=== PATIENT | male | born 1955 | race Caucasian/White ===

== ENCOUNTER 2019-02-17 18:23 | Observation (INO) | payer OTHER ==
[~2019-02-17] VITALS: Ht 185.4 cm; Wt 72.3 kg
[~2019-02-17 18:23] MED LIST: EUTHYROX150 MCG PO
[2019-02-17 20:40] LABS: BASOPHILS ABSOLUTE AUTO 0.05 K/mm3 (0.00-0.23); BASOPHILS PERCENT AUTO 1 % (0-2); EOSINOPHILS ABSOLUTE AUTO 0.01 K/mm3 (0.00-0.68); EOSINOPHILS PERCENT AUTO 0 % (0-6); Hematocrit 46.8 % (37.0-53.0); Hemoglobin 15.4 g/dL (13.5-17.5); IMMATURE GRAN ABSOLUTE AUTO 0.02 K/mm3 (0.00-0.10); IMMATURE GRAN PERCENT AUTO 1 % (0-1); International Normalized Ratio 1.01; LYMPHOCYTES ABSOLUTE AUTO 1.51 K/mm3 (0.84-5.20); LYMPHOCYTES PERCENT AUTO 34 % (21-46); MONOCYTES ABSOLUTE AUTO 0.25 K/mm3 (0.16-1.47); MONOCYTES PERCENT AUTO 6 % (4-13); Mean Corpuscular HGB 32.7 pg (26.0-34.0); Mean Corpuscular HGB Conc 32.9 g/dL (31.5-36.5); Mean Corpuscular Volume 99 fL (80-100); Mean Platelet Volume 9.9 fL (9.1-12.4); NEUTROPHILS ABSOLUTE AUTO 2.55 K/mm3 (1.96-9.15); NEUTROPHILS PERCENT AUTO 58 % (41-73); Platelet Count 220 K/mm3 (150-400); Prothrombin Time Results 10.7 Sec (9.7-11.5); RDW Coefficient Variation 14.5 % (11.7-14.2); RDW Standard Deviation 53.5 fL (35.1-46.3); Red Blood Cell Count 4.71 M/mm3 (4.30-5.90); White Blood Cell Count 4.39 K/mm3 (4.00-11.30)
[2019-02-17 20:44] LABS: Alanine Aminotransfer (ALT/SGP 45 U/L (12-78); Albumin, Blood 3.1 g/dL (3.4-5.0); Albumin/Globulin Ratio 0.6 (0.8-1.8); Alk Phos 124 U/L (50-136); Anion Gap 8 mmol/L (6-16); Aspartate Aminotrans (AST/SGOT 174 U/L (12-37); Bilirubin, Total 0.3 mg/dL (0.1-1.0); Blood Urea Nitrogen 4 mg/dL (8-24); Bun/Creatinine Ratio 5.5 (12.0-20.0); CO2, Blood 26 mmol/L (21-32); Calcium, Blood 8.3 mg/dL (8.5-10.1); Chloride, Blood 105 mmol/L (98-108); Creatinine, Blood 0.73 mg/dL (0.60-1.20); Globulin, Blood 5.3 g/dL (2.2-4.0); Glomerular Filtration Rate >60 (60-); Glucose, Blood 97 mg/dL (70-99); Potassium, Blood 4.2 mmol/L (3.5-5.5); Sodium, Blood 139 mmol/L (136-145); Total Protein, Blood 8.4 g/dL (6.4-8.2)
--- NOTE | 2019-02-18 00:30 | NUR ---
Tried taking attire off PT This leather skinner tried taking off PT's sock's, and PT. refused MACHINE SET UP OPERATOR's action. PT. had stool on socks and refused for them to be taken off. He said, "It will be okay, I am leaving in the morning". This MACHINE SET UP OPERATOR offered a pair of the [facility] socks, and PT refused.
--- NOTE | 2019-02-18 05:10 | NUR ---
SHIFT SUMMARY PATIENT ADMITTED FROM ER FOR OBSERVATION. PATIENT AAOX4 BUT APPEARS INTOXICATED, SLURRING WORDS AND VERY IMPULSIVE. BED ALARM ON. PATIENT DOES USE CALL LIGHT BUT DOES NOT WAIT FOR STAFF TO ANSWER BEFORE GETTING OUT OF BED. WITNESSED PATIENT URINATE AND HAVE LOOSE BOWEL MOVEMENT ON FLOOR OF ROOM. PATIENT HAS STOOL ON SOCKS BUT REFUSED TO ALLOW STAFF TO REMOVE OR CHANGE SOCKS. BRUISING NOTED ON LEFT SHOULDER AND ABRASION ON RIGHT FOREHEAD/JUDAISM. BED ALARM ON PATIENT STANDBY ASSIST TO BATHROOM. WILL CONTINUE TO MONITOR.
--- NOTE | 2019-02-18 14:30 | NUR ---
PT. DISCHARGED HOME, COMPED A [facility] RIDE HOME FOR HIM HE HAD NO WAY TO GET HOME. CT SHOWED BLEED IS CLEARING UP
== END 2019-02-18 14:33 | disposition home or self-care (01) ==
LOC: ER 18:23 → MEDS 18:24
PROVIDERS: Emergency Medicine; ADMIT Internal Medicine
DX: S06.6X0A Traumatic subarachnoid hemorrhage without loss of consciousness, initial encounter (principal); F10.129 Alcohol abuse with intoxication, unspecified; E03.9 Hypothyroidism, unspecified; J32.9 Chronic sinusitis, unspecified; F17.210 Nicotine dependence, cigarettes, uncomplicated; W19.XXXA Unspecified fall, initial encounter; Z79.899 Other long term (current) drug therapy
CPT/HCPCS: 36415; 70450; 72125; 80053; 85025; 85610; 85730; 90670; 90686; 96374; 97161; 99285-25; J3411; J3475; J7042

== ENCOUNTER 2020-10-14 12:53 | Inpatient (IN) | payer OTHER, MEDICARE ==
[~2020-10-14] VITALS: Ht 185.4 cm; Wt 100.6 kg
[2020-10-14 14:12] LABS: BASOPHILS ABSOLUTE AUTO 0.02 K/mm3 (0.00-0.23); BASOPHILS PERCENT AUTO 0 % (0-2); EOSINOPHILS PERCENT AUTO 0 % (0-6); Hematocrit 43.9 % (37.0-53.0); Hemoglobin 15.3 g/dL (13.5-17.5); IMMATURE GRAN ABSOLUTE AUTO 0.08 K/mm3 (0.00-0.10); IMMATURE GRAN PERCENT AUTO 1 % (0-1); LYMPHOCYTES ABSOLUTE AUTO 0.99 K/mm3 (0.84-5.20); LYMPHOCYTES PERCENT AUTO 13 % (21-46); MONOCYTES ABSOLUTE AUTO 0.74 K/mm3 (0.16-1.47); MONOCYTES PERCENT AUTO 9 % (4-13); Mean Corpuscular HGB 35.8 pg (26.0-34.0); Mean Corpuscular HGB Conc 34.9 g/dL (31.5-36.5); Mean Corpuscular Volume 103 fL (80-100); Mean Platelet Volume 12.7 fL (9.1-12.4); NEUTROPHILS ABSOLUTE AUTO 6.04 K/mm3 (1.96-9.15); NEUTROPHILS PERCENT AUTO 77 % (41-73); NRBC ABSOLUTE 0.02 K/mm3 (0.00-0.02); NRBC Auto 0.3 /100 WBC (0.0-0.2); RDW Coefficient Variation 14.1 % (11.7-14.2); RDW Standard Deviation 53.1 fL (35.1-46.3); Red Blood Cell Count 4.27 M/mm3 (4.30-5.90); White Blood Cell Count 7.87 K/mm3 (4.00-11.30)
[2020-10-14 14:18] LABS: Alanine Aminotransfer (ALT/SGP 20 U/L (12-78); Albumin/Globulin Ratio 0.6 (0.8-1.8); Alk Phos 75 U/L (50-136); Anion Gap 17 mmol/L (6-16); Aspartate Aminotrans (AST/SGOT 112 U/L (12-37); Bilirubin, Total 4.5 mg/dL (0.1-1.0); Blood Urea Nitrogen 6 mg/dL (8-24); Bun/Creatinine Ratio 7.7 (12.0-20.0); CO2, Blood 13 mmol/L (21-32); Chloride, Blood 109 mmol/L (98-108); Creatinine, Blood 0.78 mg/dL (0.60-1.20); Globulin, Blood 4.8 g/dL (2.2-4.0); Glomerular Filtration Rate >60 (60-); Glucose, Blood 148 mg/dL (70-99); Potassium, Blood 3.4 mmol/L (3.5-5.5); Sodium, Blood 139 mmol/L (136-145); Total Protein, Blood 7.8 g/dL (6.4-8.2)
[2020-10-14 14:30] LABS: Platelet Count 49 K/mm3 (150-400)
[2020-10-14 15:12] LABS: Bicarbonate Venous 23.1 mmol/L (24.0-30.0); PO2 Venous 75.3 mmHg (38-42); pH Blood Venous 7.55 (7.34-7.37)
[2020-10-14 17:57] LABS: Source, Urine Clean Catch
[2020-10-14 18:00] LABS: Appearance, Urine Clear (Clear); Blood, Urine 2+ (Neg); Color, Urine Amber (P-Yellow); Glucose Qualitative, Urine Neg (Neg); Ketones, Urine 1+ (Neg); Leukocyte Esterase, Urine 2+ (Neg); Nitrite, Urine Pos (Neg); Protein, Urine 2+ (Neg); Specific Gravity, Urine 1.025 (1.003-1.022); Urobilinogen, Urine 3+ (Normal)
[2020-10-14 18:01] LABS: Bilirubin, Urine 2+ (Neg)
[2020-10-14 18:10] LABS: Bacteria Many /hpf; Red Blood Cells, Urine 0-2 /hpf (0-2); Squamous Epithelial Cells Rare /hpf (Few)
[2020-10-14 18:11] LABS: U Amphetamine Screen Not Detected; U Barbituate Screen Not Detected; U Benzodiazapine Screen Not Detected; U Buprenorphine Screen Not Detected; U Cannabinoids Screen Not Detected; U Cocaine Screen Not Detected; U Methadone Screen Not Detected; U Methamphetamine Screen Not Detected; U Opiates Screen Not Detected; U Oxycodone Screen Not Detected; U Phencyclidine Screen Not Detected; U Propoxyphene Screen Not Detected
[2020-10-14 20:47] LABS: Free Thyroxine 0.7 ng/dL (0.70-1.60); Thyroid Stimulating Hormone 16.1 uIU/mL (0.360-4.800)
[2020-10-15 03:41] LABS: BASOPHILS ABSOLUTE AUTO 0.01 K/mm3 (0.00-0.23); BASOPHILS PERCENT AUTO 0 % (0-2); EOSINOPHILS PERCENT AUTO 0 % (0-6); Hematocrit 41.2 % (37.0-53.0); Hemoglobin 14.2 g/dL (13.5-17.5); IMMATURE GRAN ABSOLUTE AUTO 0.02 K/mm3 (0.00-0.10); IMMATURE GRAN PERCENT AUTO 1 % (0-1); LYMPHOCYTES ABSOLUTE AUTO 0.66 K/mm3 (0.84-5.20); LYMPHOCYTES PERCENT AUTO 18 % (21-46); MONOCYTES ABSOLUTE AUTO 0.25 K/mm3 (0.16-1.47); MONOCYTES PERCENT AUTO 7 % (4-13); Mean Corpuscular HGB 35.5 pg (26.0-34.0); Mean Corpuscular HGB Conc 34.5 g/dL (31.5-36.5); Mean Corpuscular Volume 103 fL (80-100); NEUTROPHILS ABSOLUTE AUTO 2.64 K/mm3 (1.96-9.15); NEUTROPHILS PERCENT AUTO 74 % (41-73); NRBC ABSOLUTE 0.02 K/mm3 (0.00-0.02); NRBC Auto 0.6 /100 WBC (0.0-0.2); RDW Coefficient Variation 13.9 % (11.7-14.2); RDW Standard Deviation 53.6 fL (35.1-46.3); White Blood Cell Count 3.58 K/mm3 (4.00-11.30)
[2020-10-15 03:44] LABS: Mean Platelet Volume 13.1 fL (9.1-12.4); Platelet Count 36 K/mm3 (150-400)
[2020-10-15 04:00] LABS: Alanine Aminotransfer (ALT/SGP 19 U/L (12-78); Albumin, Blood 2.5 g/dL (3.4-5.0); Albumin/Globulin Ratio 0.6 (0.8-1.8); Alk Phos 61 U/L (50-136); Anion Gap 8 mmol/L (6-16); Aspartate Aminotrans (AST/SGOT 80 U/L (12-37); Bilirubin, Total 3.5 mg/dL (0.1-1.0); Blood Urea Nitrogen 8 mg/dL (8-24); Bun/Creatinine Ratio 11.1 (12.0-20.0); CO2, Blood 24 mmol/L (21-32); Calcium, Blood 7.6 mg/dL (8.5-10.1); Chloride, Blood 106 mmol/L (98-108); Creatinine, Blood 0.72 mg/dL (0.60-1.20); Globulin, Blood 4.4 g/dL (2.2-4.0); Glomerular Filtration Rate >60 (60-); Glucose, Blood 103 mg/dL (70-99); Sodium, Blood 138 mmol/L (136-145); Total Protein, Blood 6.9 g/dL (6.4-8.2)
--- NOTE | 2020-10-15 05:59 | NUR ---
SHIFT SUMMARY PATIENT SLEPT WELL THRU NIGHT. EARLIER IN NIGHT PT BECAME HYPOTENSIVE, STARTED NS BOLUS. BP WAS INITIALLY REACTIVE, MAINTAINING WITH SBP ~ 85, MAP > 65. HOWEVER @ 04:15 BP DROPPED AGAIN, LOW OF 64/45 WITH MANUAL CUFF, OBTAINED ORDER FOR LEVOPHED. CURRENTLY RUNNING PERIPHERALLY @ 4 MCG/MIN, BP NOW 106/78 (88,) PT BECOMING MORE EASILY ROUSABLE. BEFORE FALLING ASLEEP PT HAD SLOWLY BECAME MORE CONFUSED, PROGRESSING FROM CIWA OF 2, ONLY SCORING FOR TREMORS, TO HIGH OF 14, SCORING FOR TREMORS, SWEATS, AGITATION, AND CONFUSION. GAVE 4 MG ATIVAN AND 50 MG LIBRIUM TONIGHT. BEFORE BECOMING CONFUSED, PT HAD ADMITTED TO RECENT 6-MONTH DRINKING BINGE. PT STATED "I WAS JUST BORED." GAVE EDUCATION ON ALCOHOL WITHDRAWL, BASIC SAFETY MEASURES WHILE IN ICU, MEDICATIONS, PT VERY AGREEABLE AT THE TIME. ASSESSMENT IS CHARTED. VSS. WILL CONTINUE TO MONITOR.
--- NOTE | 2020-10-15 07:45 | NUR ---
ASSUMED CARE: REPORT RECEIVED FROM CRISTIAN Jade RN. ASSUMED CARE OF THIS PT AT APPROX 0700. ON ASSESSMENT, THE PT IS RESTING QUIETLY. HE AWAKENS MINIMALLY TO VERBAL STIMULUS BUT IS NOT SAYING WORDS, ONLY GROANS OR MAKES NONSENSICAL STATEMENTS THAT ARE DIFFICULT TO UNDERSTAND. SEE CIWA. PT ON RA W/ O2 SATS > 92%. MONITOR SHOWS AFLUTTER/AFIB W/ HR LABILE, 70-140s. LEVOPHED INFUSING AT 2 MCG/MIN FOR HYPOTENSION. NPO R/T AMS. INCONTINENT OF BLADDER & BOWEL W/ ATTENDS IN PLACE. SKIN CONDITION OVERALL FRAGILE, ECCHYMOTIC. Q2H REPOSITIONING TO MAINTAIN SKIN INTEGRITY. WILL CONTINUE TO MONITOR & UPDATE NEEDED.
--- NOTE | 2020-10-15 10:00 | NUR ---
DR CHUNG: PROVIDER AT BEDSIDE TO EVAL PT THIS AM. DISCUSSED PT's LOW PLT COUNT & ORDERED LOVENOX, LOVENOX D/C'd. NS RATE INCREASED TO 200 ML/HR, D/C NS AFTER BAG CURRENTLY INFUSING & BEGIN LR @ 200 ML/HR. PROVIDER ALSO PLANS TO ORDER PT's HOME LEVOTHYROXINE. NO OTHER CHANGES AT THIS TIME.
[2020-10-15] MEDS ORDERED: LEVSOD150 PO (11:04)
[2020-10-15] MEDS ORDERED: TAMS.4ER PO (11:04)
--- NOTE | 2020-10-15 18:07 | NUR ---
SHIFT SUMMARY: NO ACUTE CHANGES SINCE PRIOR UPDATES. THE PT IS MORE ALERT THIS AFTERNOON, ORIENTED TO SELF, FOLLOWING DIRECTIONS, PLACE & EVENTS. LS CLEAR, PT ON RA W/ O2 SATS > 92%. MONITOR SHOWS AFLUTTER/AFIB W/ HR 70-100s, BP STABLE W/ LEVOPHED OFF SINCE APPROX 1300. PT TOLERATING SIPS OF WATER SINCE MENTATION IMPROVED. ATTENDS IN PLACE FOR INCONTINENCE OF BOWEL & BLADDER. PT OCCASIONALLY USES URINAL, VOIDING DARK TINY COLORED URINE IN SMALL AMNTS. SKIN CONDITION OVERALL FRAGILE, ECCYMOTIC. Q2H REPOSITIONING TO MAINTAIN SKIN INTEGRITY. WILL CONTINUE TO MONITOR & REPORT OFF TO ONCOMING RN.
[2020-10-16 03:48] LABS: BASOPHILS ABSOLUTE AUTO 0.01 K/mm3 (0.00-0.23); BASOPHILS PERCENT AUTO 0 % (0-2); EOSINOPHILS PERCENT AUTO 0 % (0-6); Hematocrit 40.9 % (37.0-53.0); Hemoglobin 14.1 g/dL (13.5-17.5); IMMATURE GRAN ABSOLUTE AUTO 0.06 K/mm3 (0.00-0.10); IMMATURE GRAN PERCENT AUTO 2 % (0-1); LYMPHOCYTES ABSOLUTE AUTO 0.85 K/mm3 (0.84-5.20); LYMPHOCYTES PERCENT AUTO 22 % (21-46); MONOCYTES ABSOLUTE AUTO 0.46 K/mm3 (0.16-1.47); MONOCYTES PERCENT AUTO 12 % (4-13); Mean Corpuscular HGB 35.4 pg (26.0-34.0); Mean Corpuscular HGB Conc 34.5 g/dL (31.5-36.5); Mean Corpuscular Volume 103 fL (80-100); NEUTROPHILS ABSOLUTE AUTO 2.49 K/mm3 (1.96-9.15); NEUTROPHILS PERCENT AUTO 64 % (41-73); RDW Coefficient Variation 13.8 % (11.7-14.2); RDW Standard Deviation 52.8 fL (35.1-46.3); Red Blood Cell Count 3.98 M/mm3 (4.30-5.90); White Blood Cell Count 3.87 K/mm3 (4.00-11.30)
[2020-10-16 03:50] LABS: Mean Platelet Volume 13.3 fL (9.1-12.4)
[2020-10-16 03:51] LABS: Platelet Count 36 K/mm3 (150-400)
[2020-10-16 04:17] LABS: Alanine Aminotransfer (ALT/SGP 19 U/L (12-78); Albumin, Blood 2.2 g/dL (3.4-5.0); Albumin/Globulin Ratio 0.6 (0.8-1.8); Alk Phos 52 U/L (50-136); Anion Gap 8 mmol/L (6-16); Aspartate Aminotrans (AST/SGOT 72 U/L (12-37); Bilirubin, Total 2.8 mg/dL (0.1-1.0); Blood Urea Nitrogen 9 mg/dL (8-24); Bun/Creatinine Ratio 14.4 (12.0-20.0); CO2, Blood 22 mmol/L (21-32); Calcium, Blood 7.4 mg/dL (8.5-10.1); Chloride, Blood 110 mmol/L (98-108); Creatinine, Blood 0.63 mg/dL (0.60-1.20); Glomerular Filtration Rate >60 (60-); Glucose, Blood 83 mg/dL (70-99); Potassium, Blood 3.2 mmol/L (3.5-5.5); Sodium, Blood 140 mmol/L (136-145); Total Protein, Blood 6.2 g/dL (6.4-8.2)
--- NOTE | 2020-10-16 06:03 | NUR ---
SHIFT SUMMARY PATIENT SLEPT WELL THRU NIGHT. GAVE LIBRIUM EARLIER IN NIGHT FOR CIWA OF 11, WAS NOT SCORABLE HIGHER THAN 3 REST OF NIGHT. VSS. ASSESSMENT IS CHARTED. NO C/O PAIN. WILL CONTINUE TO MONITOR.
--- NOTE | 2020-10-16 08:50 | NUR ---
ASSUMED CARE REPORT FROM CRISTIAN GOMEZ AT 0700. PT WAKES TO VERBAL STIMULI. INITIALLY STATES HE IS IN [place], THEN STATES HE IS [place], [place] AND KNOWS MONTH AND YEAR. UNSURE OF PRESIDENT. FOLLOWS SIMPLE DIRECTIONS. DENIES VISUAL OR AUDITORY HALLUCINATIONS. REPORTS MILD CURTIS, DENIES N/V. SLIGHT TREMORS NOTED. CIWA 7. LIBRIUM GIVEN. NO DIFFICULTIES SWALLOWING. LUNGS CLEAR. AFIB, RATE 90-120'S ON MONITOR. BP STABLE. SKIN c SCATTERED ABRASIONS AND ECCHYMOSIS. GENERALIZED WEAKNESS BUT MOVES ALL EXTREMITIES. ATTENDS IN PLACE, PT INCONTINENT OF BOWEL AND BLADDER. LIQUID STOOL OUT. WILL CONTINUE TO MONITOR.
--- NOTE | 2020-10-16 17:13 | NUR ---
SHIFT SUMMARY PT MORE CONFUSED THIS SHIFT. SPEECH GARBLED, INCOHERANT. ABLE TO STATE NAME AND CITY. BECOMES IRRITABLE c QUESTIONS OR CARE. CURSING. MILD TREMORS. NO HALLUCINATIONS NOTED. CIWA 10-15 THIS SHIFT. MEDICATED c LIBRIUM AND ATIVAN PRN. PT INCONTINENT OF BOTH BOWEL AND BLADDER. CONDOM CATH AND FECAL COLLECTION SYSTEM PLACED. BROWN LIQUID STOOL SENT TO LAB FOR GI PANEL. PT ATE SMALL AMOUNT OF BREAKFAST ONLY, NOT ALERT ENOUGH FOR LUNCH OR DINNER. VSS. PLACED ON 2L O2 VIA NC FOR SLEEP APNEA. WILL CONTINUE TO MONITOR UNTIL REPORT TO ONCOMING NURSE.
[2020-10-16 17:19] LABS: Campylobacter Sp Not Detected (NOT DETECT)
[2020-10-16 17:20] LABS: Adenovirus F 40/41 Not Detected (NOT DETECT); Astrovirus Not Detected (NOT DETECT); Cryptosporidium Not Detected (NOT DETECT); Cyclospora Cayetanensis Not Detected (NOT DETECT); E. Coli O157 Not Detected (NOT DETECT); Entamoeba Histolytica Not Detected (NOT DETECT); Enteroaggregative E. coli-EAEC Not Detected (NOT DETECT); Enteropathogenic E. coli-EPEC Not Detected (NOT DETECT); Enterotoxigenic E. coli-ETEC Not Detected (NOT DETECT); Giardia Lamblia Not Detected (NOT DETECT); Norovirus GI/GII Not Detected (NOT DETECT); Plesiomonas Shigelloides Not Detected (NOT DETECT); Rotavirus A Not Detected (NOT DETECT); Salmonella Sp Not Detected (NOT DETECT); Sapovirus Not Detected (NOT DETECT); Shiga Toxin-prod E. coli-STEC Not Detected (NOT DETECT); Shigella/Enteroin E. coli-EIEC Not Detected (NOT DETECT); Vibrio Cholerae Not Detected (NOT DETECT); Vibrio Sp Not Detected (NOT DETECT); Yersinia Enterocolitica Not Detected (NOT DETECT)
[2020-10-16 19:15] LABS: pH Blood Arterial 7.56 (7.35-7.45)
--- NOTE | 2020-10-16 19:40 | NUR ---
ASSUMED CARE REPORT RECEIVED FROM CORA GOMEZ. PT RESTING IN BED, DENIES PAIN AT THIS TIME. LR INFUSING AT 200 ML/HR. PT WITH VERY GARBLED SPEECH, ANSWERS ALL ORIENTATION QUESTIONS APPROPRIATELY. FOLLOWS COMMANDS. HR 90-115'S AFIB ON MONITOR, SBP 115'S, RR 40-50'S. CONDOM CATH IN PLACE, DRAINING TO GRAVITY. RECTAL BAG IN PLACE DUE TO FREQUENT DIARRHEA. LUNG COARSE WITH OCCASSIONAL PRODUCTIVE COUGH. SUCTION USED TO ATTEMPT TO CLEAR MOUTH, NO GAG NOTED. WILL REVIEW ORDERS TO COME UP WITH PLAN OF CARE.
--- NOTE | 2020-10-17 01:15 | NUR ---
2100: SPOKE WITH DR. HOLLIS REGARDING PT'S RR. BUNNY TO PT'S BEDSIDE TO ASSESS PT. NEW ORDER PLACED FOR CXR. FLUIDS STOPPED AT THIS TIME DUE TO CONCERN FOR FLUID OVERLOAD. 2144: BUNNY NOTIFED THAT CXR COMPLETED. PER MD, CONGESTION NOTED. FLUID OVERLOAD VS PNEUMONIA. NEW ORDERS PLACED FOR ONE TIME 40MG LASIX, LEVAQUIN, AND CPAP IF PT CAN TOLERATE. ORDER PLACED FOR BNP TO BE DRAWN. 2214: CPAP APPLIED, PT TOLERATING. RR REMAINS 40-50'S. 2229: BUNNY NOTIFIED OF ELEVATED BNP OF 627. WILL CONTINUE TO MONITOR, NO ADDITIONAL ORDERS PLACED AT THIS TIME.
[2020-10-17 03:36] LABS: BASOPHILS ABSOLUTE AUTO 0.01 K/mm3 (0.00-0.23); BASOPHILS PERCENT AUTO 0 % (0-2); EOSINOPHILS PERCENT AUTO 0 % (0-6); Hematocrit 41.8 % (37.0-53.0); Hemoglobin 14.8 g/dL (13.5-17.5); IMMATURE GRAN ABSOLUTE AUTO 0.03 K/mm3 (0.00-0.10); IMMATURE GRAN PERCENT AUTO 1 % (0-1); LYMPHOCYTES ABSOLUTE AUTO 0.68 K/mm3 (0.84-5.20); LYMPHOCYTES PERCENT AUTO 15 % (21-46); MONOCYTES ABSOLUTE AUTO 0.57 K/mm3 (0.16-1.47); MONOCYTES PERCENT AUTO 13 % (4-13); Mean Corpuscular HGB Conc 35.4 g/dL (31.5-36.5); Mean Corpuscular Volume 102 fL (80-100); NEUTROPHILS ABSOLUTE AUTO 3.21 K/mm3 (1.96-9.15); NEUTROPHILS PERCENT AUTO 71 % (41-73); NRBC ABSOLUTE 0.02 K/mm3 (0.00-0.02); NRBC Auto 0.4 /100 WBC (0.0-0.2); RDW Coefficient Variation 13.9 % (11.7-14.2); RDW Standard Deviation 52.2 fL (35.1-46.3); Red Blood Cell Count 4.11 M/mm3 (4.30-5.90)
[2020-10-17 03:40] LABS: Platelet Count 37 K/mm3 (150-400)
[2020-10-17 03:56] LABS: Alanine Aminotransfer (ALT/SGP 16 U/L (12-78); Albumin, Blood 1.9 g/dL (3.4-5.0); Albumin/Globulin Ratio 0.5 (0.8-1.8); Alk Phos 51 U/L (50-136); Anion Gap 10 mmol/L (6-16); Aspartate Aminotrans (AST/SGOT 59 U/L (12-37); Bilirubin, Total 2.7 mg/dL (0.1-1.0); Blood Urea Nitrogen 11 mg/dL (8-24); Bun/Creatinine Ratio 16.6 (12.0-20.0); CO2, Blood 22 mmol/L (21-32); Calcium, Blood 7.6 mg/dL (8.5-10.1); Chloride, Blood 108 mmol/L (98-108); Creatinine, Blood 0.66 mg/dL (0.60-1.20); Globulin, Blood 3.9 g/dL (2.2-4.0); Glomerular Filtration Rate >60 (60-); Glucose, Blood 98 mg/dL (70-99); Potassium, Blood 2.7 mmol/L (3.5-5.5); Sodium, Blood 140 mmol/L (136-145); Total Protein, Blood 5.8 g/dL (6.4-8.2)
--- NOTE | 2020-10-17 05:06 | NUR ---
DR. CERDA NOTIFIED REGARDING BP 74/55. NEW ORDER PLACED FOR 250ML BOLUS.
--- NOTE | 2020-10-17 06:26 | NUR ---
SHIFT SUMMARY PT RESTING COMFORTABLY. DENIES PAIN T/O SHIFT. CPAP 10/30%. PT AROUSABLE TO VERBAL STIMULI, FOLLOWING COMMANDS. HR 60'S AFIB ON MONITOR. BP SOFT THIS MORNING AFTER STARTING PRECEDEX, AWARE 250ML LR BOLUS X2 ORDERED TO MAINTAIN MAP >65. RECTAL BAG INTACT, CONDOM CATH DRAINING TO GRAVITY. RR 30'S, LUNGS COARSE T/O SHIFT. WILL CONTINUE TO MONITOR UNTIL REPORT GIVEN TO ONCOMING RN.
--- NOTE | 2020-10-17 08:30 | NUR ---
ASSUMED CARE REPORT FROM ARTURO GOMEZ AT 0700. PT RESTING IN BED. WAKES c VERBAL STIMULI. GARBLE SPEECH, DIFFICULT TO UNDERSTAND THROUGH CPAP MASK. SETTINGS 10/30%. FOLLOWS SIMPLE DIRECTIONS. LUNGS COARSE THROUGHOUT. TACHYPNEIC, RR 30-40'S. ABD ROUND, SOFT, HYPOACTIVE BT. AM MEDS HELD D/T ASPIRATION RISK. ECCHYMOSIS AND ABRASIONS, SEE SKIN ASSESSMENT. RECTAL BAG IN PLACE, LIQUID BROWN STOOL OUT. CONDOM CATH DRAINING TINY CLEAR URINE. MAYANK HOSE FOR VTE. BP STABLE. AFIB, RATE 60'S. WILL CONTINUE TO MONITOR.
--- NOTE | 2020-10-17 17:32 | NUR ---
SHIFT SUMMARY PT TITRATED OFF PRECEDEX GTT THIS SHIFT. PT KNOWS HE IS IN [place], AT [facility], ABLE TO STATE NAME AND BIRTHDAY. GARBLED SPEECH, DIFFICULT TO UNDERSTAND. IRRITABLE c FURTHER QUESTIONING. FOLLOWS SIMPLE COMMANDS. LUNGS COARSE. PT ON CPAP 10/30% FOR FIRST HALF OF SHIFT, 2L VIA NC SECOND HALF. RR CONTINUES TO BE 30-40 c BOTH CPAP AND NC. CONDOM CATH AND RECTAL BAG REMAIN IN PLACE. 1250 ML CLEAR TINY URINE OUT THIS SHIFT. BP STABLE. AFIB, RATE 60-70'S THIS SHIFT. WILL CONTINUE TO MONITOR UNTIL REPORT TO ONCOMING NURSE.
[2020-10-18 04:26] LABS: Albumin, Blood 1.7 g/dL (3.4-5.0); Anion Gap 6 mmol/L (6-16); Blood Urea Nitrogen 10 mg/dL (8-24); Bun/Creatinine Ratio 15.4 (12.0-20.0); CO2, Blood 26 mmol/L (21-32); Calcium, Blood 7.4 mg/dL (8.5-10.1); Chloride, Blood 108 mmol/L (98-108); Creatinine, Blood 0.65 mg/dL (0.60-1.20); Glomerular Filtration Rate >60 (60-); Glucose, Blood 89 mg/dL (70-99); Magnesium, Blood 1.7 mg/dL (1.6-2.4); Phosphorus, Blood 2.5 mg/dL (2.5-4.9); Potassium, Blood 3.1 mmol/L (3.5-5.5); Sodium, Blood 140 mmol/L (136-145)
[2020-10-18 04:40] LABS: BASOPHILS PERCENT AUTO 0 % (0-2); EOSINOPHILS ABSOLUTE AUTO 0.01 K/mm3 (0.00-0.68); EOSINOPHILS PERCENT AUTO 0 % (0-6); Hematocrit 37.6 % (37.0-53.0); Hemoglobin 12.9 g/dL (13.5-17.5); IMMATURE GRAN ABSOLUTE AUTO 0.03 K/mm3 (0.00-0.10); IMMATURE GRAN PERCENT AUTO 1 % (0-1); LYMPHOCYTES PERCENT AUTO 21 % (21-46); MONOCYTES ABSOLUTE AUTO 0.32 K/mm3 (0.16-1.47); MONOCYTES PERCENT AUTO 11 % (4-13); Mean Corpuscular HGB 35.7 pg (26.0-34.0); Mean Corpuscular HGB Conc 34.3 g/dL (31.5-36.5); Mean Corpuscular Volume 104 fL (80-100); NEUTROPHILS ABSOLUTE AUTO 1.95 K/mm3 (1.96-9.15); NEUTROPHILS PERCENT AUTO 67 % (41-73); RDW Coefficient Variation 13.8 % (11.7-14.2); RDW Standard Deviation 52.9 fL (35.1-46.3); Red Blood Cell Count 3.61 M/mm3 (4.30-5.90); White Blood Cell Count 2.91 K/mm3 (4.00-11.30)
[2020-10-18 05:41] LABS: Platelet Count 26 K/mm3 (150-400)
--- NOTE | 2020-10-18 07:22 | NUR ---
SHIFT SUMMARY PATIENT IS ALERT AND ORIENTED X3, CONFUSED AT TIMES AND NEEDS TO BE REORIENTED. GARBLED SPEECH. AGITATED AT TIMES, ATIVAN GIVEN ONCE, PATIENT SLEPT MOST OF NIGHT AFTERWARD. CIWA RANGING FROM 8-10. REPOSITIONED Q2 HOURS. PATIENT WORE CPAP MOST THE NIGHT, 2L NC WHEN OFF CPAP, 02 SATS >95%. RR REMAINS IN THE 30s-40s. CONDOM CATH DRAINING TINY URINE. CALLED HOSPITALIST ABOUT POTASSIUM OF 3.1, WILL MEDICATE PER EMAR. VSS, NO ACUTE CHANGES, CALL LIGHT IN REACH.
--- NOTE | 2020-10-18 08:30 | NUR ---
ASSUMED CARE BEDSIDE REPORT RECIEVED. PT RESTING QUIETLY INITIALLY. PT AWAKENS EASILY TO VERBAL STIMULI. CPAP REMOVED. PT SPO2 >90% ON ROOM AIR. VITAL SIGNS STABLE. PT ANSWERS SIMPLE QUESTIONS APPROPRIATELY. SPEECH IS SLURRED AND PT SLOW TO RESPOND. CONFUSED/FORGETFUL AT TIMES. PT IS CALM AND COOPERATIVE. LR INFUSING AT 100 ML/HR. CONDOM CATH IN PLACE WITH DARK YELLOW OUTPUT NOTED. PT MOVES ALL EXTREMITIES WITH WEAKNESS. WILL CONTINUE TO MONITOR.
--- NOTE | 2020-10-18 17:34 | NUR ---
SHIFT SUMMARY NO ACUTE CHANGES THIS SHIFT. PT HAS SLEPT OFF AND ON THROUGHOUT THE DAY. WHEN AWAKE PT REMAINS CALM AND COOPERATIVE. PT IS FORGETFUL, BUT ANSWERS SOME QUESTIONS APPROPRIATELY. PT WITH PROFOUND WEAKNESS. PT DANGLED AT BEDSIDE THIS AFTERNOON WITH 2 PERSON ASSISTANCE. LR INFUSING AT 100 ML/HR. PRECEDEX HAS REMAINED ON STANDBY THIS SHIFT. CONDOM CATH REMAINS IN PLACE. VITAL SIGNS STABLE. WILL CONTINUE TO MONITOR AND REPORT OFF TO ONCOMING RN.
[2020-10-19 04:05] LABS: BASOPHILS ABSOLUTE AUTO 0.01 K/mm3 (0.00-0.23); BASOPHILS PERCENT AUTO 0 % (0-2); EOSINOPHILS ABSOLUTE AUTO 0.02 K/mm3 (0.00-0.68); EOSINOPHILS PERCENT AUTO 1 % (0-6); Hematocrit 38.4 % (37.0-53.0); Hemoglobin 13.3 g/dL (13.5-17.5); IMMATURE GRAN ABSOLUTE AUTO 0.01 K/mm3 (0.00-0.10); IMMATURE GRAN PERCENT AUTO 0 % (0-1); LYMPHOCYTES ABSOLUTE AUTO 0.73 K/mm3 (0.84-5.20); LYMPHOCYTES PERCENT AUTO 25 % (21-46); MONOCYTES ABSOLUTE AUTO 0.28 K/mm3 (0.16-1.47); MONOCYTES PERCENT AUTO 10 % (4-13); Mean Corpuscular HGB 35.7 pg (26.0-34.0); Mean Corpuscular HGB Conc 34.6 g/dL (31.5-36.5); Mean Corpuscular Volume 103 fL (80-100); NEUTROPHILS ABSOLUTE AUTO 1.86 K/mm3 (1.96-9.15); NEUTROPHILS PERCENT AUTO 64 % (41-73); RDW Coefficient Variation 13.9 % (11.7-14.2); Red Blood Cell Count 3.73 M/mm3 (4.30-5.90); White Blood Cell Count 2.91 K/mm3 (4.00-11.30)
[2020-10-19 04:14] LABS: Mean Platelet Volume 14.6 fL (9.1-12.4)
[2020-10-19 04:16] LABS: Platelet Count 38 K/mm3 (150-400)
[2020-10-19 04:28] LABS: Albumin, Blood 1.7 g/dL (3.4-5.0); Anion Gap 8 mmol/L (6-16); Blood Urea Nitrogen 7 mg/dL (8-24); Bun/Creatinine Ratio 11.5 (12.0-20.0); CO2, Blood 24 mmol/L (21-32); Calcium, Blood 7.2 mg/dL (8.5-10.1); Chloride, Blood 108 mmol/L (98-108); Creatinine, Blood 0.61 mg/dL (0.60-1.20); Glomerular Filtration Rate >60 (60-); Glucose, Blood 83 mg/dL (70-99); Phosphorus, Blood 2.4 mg/dL (2.5-4.9); Potassium, Blood 2.8 mmol/L (3.5-5.5); Sodium, Blood 140 mmol/L (136-145)
--- NOTE | 2020-10-19 05:58 | NUR ---
SUMMARY PT REMAINS ORIENTED TO SELF, CIWA SCORE OF 16 OBTAINED THROUGH THE NIGHT, 2 MG'S PRN ATIVAN GIVEN PER EMAR, PT TOLERATED THIS WNL, O2 VIA NC @ 2L PLACED, SPO2 >92%, TACHYPNEA CONTINUES, BP STABLE, AFIB NOTED, HR WOULD INCREASE UP TO 140'S WHILE AGITATED. Q2 REPOSITIONING, CONDOM CATHETER IN PLACE, URINE IS TINY. PT'S WALLET AND SOME RODRIGUEZ WAS FOUND IN A BAG AT THE BEDSIDE, THIS WAS REPORTED TO THE COMPUTER SERVICE TECHNICIAN. CALL LIGHT IN REACH, BED ALARM IS ON FOR SAFETY, WCTM & REPORT TO DAY RN.
--- NOTE | 2020-10-19 08:45 | NUR ---
TELEPHONE TO PHYSICIAN REGARDING INCREASED HR, INCREASING CIWA'S AND LOW POTASSIUM. ORDERS PLACED BY PHYSICIAN FOR IV LOPRESSOR AND POTASSIUM REPLACEMENT. CONTINUING CIWAS AND MEDICATING PER EMAR. DIAPHERETIC, TACHPYNIC, OPENS EYES TO VERBAL VOICE BUT MUMBLES WHEN ASKED QUESTIONS. MOVES ALL FOUR EXTREMETIES ALTHOUGH WEAK.
--- NOTE | 2020-10-19 11:00 | NUR ---
TELEPHONE CALL TO PHYSICAN TO UPDATE ON PT STATUS. HR IMRPOVED BUT REMAINS IN AFIB. MENTAL STATUS UNCHANGED FROM THIS AM. CONTINUING CIWA PER EMAR. VERBAL ORDER GIVEN BY PROVIDER FOR CT.
--- NOTE | 2020-10-19 17:57 | NUR ---
SHIFT SUMMARY; ASSUMED CARE AT 0700, REPORT FROM [facility]. AWAKENS TO VOICE AND MUMBLES WHEN ASKED QUESTIONS. NO IMPROVEMENT IN MENTATION DURING SHIFT. DR. SALDIVAR AT BEDSIDE ON TWO OCCASIONS TO ASSESS. HEAD CT COMPLETE TODAY. REMAINS TACHYPNIC DURING SHIFT. VBG COMPLETED IN AM. MEDICATED FOR CIWAS PER EMAR. CONDOM CATH IN PLACE DRAINING TO GRAVITY BAG. LR INFUSING AT 100MLH/R. 2L O2 TO MAINTAIN SATS OF 92-94%. COARSE LUNG SOUNDS T/O. WILL CONTINUE TO MONITOR AND TREAT UNTIL CHANGE OF SHIFT.
--- NOTE | 2020-10-19 19:21 | NUR ---
RECEIVED REPORT AND ASSUMED CARE OF PT. HE IS LYING IN BED MOANING, TACHYPNIC. DOES NOT ANSWER QUESTIONS. VSS. WILL MEDICATE PER MAR.
[2020-10-20 05:00] LABS: BASOPHILS ABSOLUTE AUTO 0.02 K/mm3 (0.00-0.23); BASOPHILS PERCENT AUTO 1 % (0-2); EOSINOPHILS ABSOLUTE AUTO 0.03 K/mm3 (0.00-0.68); EOSINOPHILS PERCENT AUTO 1 % (0-6); Hemoglobin 13.2 g/dL (13.5-17.5); IMMATURE GRAN ABSOLUTE AUTO 0.03 K/mm3 (0.00-0.10); IMMATURE GRAN PERCENT AUTO 1 % (0-1); LYMPHOCYTES ABSOLUTE AUTO 0.95 K/mm3 (0.84-5.20); LYMPHOCYTES PERCENT AUTO 23 % (21-46); MONOCYTES ABSOLUTE AUTO 0.31 K/mm3 (0.16-1.47); MONOCYTES PERCENT AUTO 8 % (4-13); Mean Corpuscular HGB Conc 34.7 g/dL (31.5-36.5); Mean Corpuscular Volume 104 fL (80-100); NEUTROPHILS ABSOLUTE AUTO 2.75 K/mm3 (1.96-9.15); NEUTROPHILS PERCENT AUTO 67 % (41-73); RDW Coefficient Variation 14.1 % (11.7-14.2); RDW Standard Deviation 54.1 fL (35.1-46.3); Red Blood Cell Count 3.67 M/mm3 (4.30-5.90); White Blood Cell Count 4.09 K/mm3 (4.00-11.30)
[2020-10-20 05:03] LABS: Mean Platelet Volume 13.9 fL (9.1-12.4)
[2020-10-20 05:04] LABS: Platelet Count 48 K/mm3 (150-400)
[2020-10-20 05:17] LABS: Albumin, Blood 1.6 g/dL (3.4-5.0); Anion Gap 7 mmol/L (6-16); Blood Urea Nitrogen 5 mg/dL (8-24); Bun/Creatinine Ratio 8.5 (12.0-20.0); CO2, Blood 24 mmol/L (21-32); Calcium, Blood 7.2 mg/dL (8.5-10.1); Chloride, Blood 107 mmol/L (98-108); Creatinine, Blood 0.59 mg/dL (0.60-1.20); Glomerular Filtration Rate >60 (60-); Glucose, Blood 85 mg/dL (70-99); Phosphorus, Blood 2.8 mg/dL (2.5-4.9); Potassium, Blood 3.2 mmol/L (3.5-5.5); Sodium, Blood 138 mmol/L (136-145)
--- NOTE | 2020-10-20 06:36 | NUR ---
SHIFT SUMMARY: AGUSTÍN OPENS HIS EYES AND MOANS TO VOICE. HE HAS ATTEMPTED TO SPEAK THIS SHIFT, BUT ONLY PRODUCED NONSENSICAL SOUNDS. Q2 TURNS AND ORAL CARE PROVIDED, WEAK COUGH EFFORT. HE REMAINS NPO PER SPEECH ORDERS, BECAME NPO ON THE PER Kandice. CONDOM CATH IN PLACE DRAINING DARK YELLOW URINE. ATTENDS IN PLACE, INCONTINENT BM THIS SHIFT. HEELS FLOATED, MEPILEX PLACED TO PREEXISTING WOUND TO RIGHT HIP D/T SMALL AMT EXUDATE. IV METOPROLOL GIVEN THIS AM FOR HEART RATE SUSTAINING IN 140s, ATIVAN GIVEN FOR AGITATION, HE REMAINS TACHYPNIC. POTASSIUM 3.7 AT BEGINNING OF SHIFT, 3.2 THIS AM. HE IS LYING IN BED WITH THE CALL LIGHT IN REACH. HE HAS NOT USED THE CALL LIGHT THIS SHIFT. WILL REPORT TO DAY SHIFT RN.
--- NOTE | 2020-10-20 10:00 | NUR ---
DR. CHUNG TO ROOM TO EVALUATE PT. DISCONTINUE CIWA PROTOCOL TO EVALUATE IF NEURO STATUS IMPROVES. WILL CONTINUE TO MONITOR.
--- NOTE | 2020-10-20 14:33 | NUR ---
TELEPHONE CALL TO DR. ESPINAL. DISCUSSED FLUID BALANCE. NO OUTPUT SINCE 0500. 2200ML GIVEN DURING THIS TIME. BLADDER SCAN, 200ML IN BLADDER. CONDOM CATH IN PLACE.
--- NOTE | 2020-10-20 14:35 | NUR ---
BIPAP STARTED BY RT. CURRENT SETTINGS 03/24 25%.
--- NOTE | 2020-10-20 17:22 | NUR ---
SHIFT SUMMARY; ASSUMED CARE AT 0700, REPORT FROM PATRICIA CHARLES. REPSONSIVE TO PAINFUL STIMULI DURING SHIFT. OPENS EYES AND MOANS. RR ELEVATED AT 40 BPM DURING SHIFT. DISCUSSED WITH PROVIDER NO URINARY OUTPUT DURING SHIFT. BLADDER SCAN COMPLETE, 200ML IN BLADDER, CONDOM CATH IN PLACE. CONTINUE FLUIDS AT 75ML/HR PER DR. ESPINAL AND CONTINUE TO MONITOR URINE OUTPUT. REPOSITIONED Q2 DURING SHIFT, ORAL CARE Q4 WITH SUCTIONING NEEDED. BIPAP STARTED IN AFTERNOON FOR COARSE LUNG SOUNDS T/O. 03/24 25%. CIWA MEDS HELD PER DR. CHUNG TO ALLOW FOR NEURO STATUS TO POSSIBLE IMPROVE. MINIMAL MOANING TODAY COMPARED TO YESTERDAY, NO PURPOSEFUL MOVEMENT OF EXTREMETIES, PUPILS EQUAL AND REACTIVE. WILL CONTINUE TO TREAT AND MONITOR UNTIL CHANGE OF SHIFT.
--- NOTE | 2020-10-20 19:55 | NUR ---
ASSUMED CARE OF PATIENT AT APPROXIMATELY 1900 FROM NENO Swenson RN. PATIENT LETHARGIC; RESPONDS TO PAINFUL STIMULULS; ANXIOUS AND RESPIRATORY RATE INCREASES AFTER TURNING, ORAL CARE OR ANY CARE DONE. PATIENT MOANS, DOESNT ANSWER QUESTIONS. AFIB W/ AVERAGE OF 110'S ON TELE; OXYGEN SATURATION ABOVE 90% ON BIPAP 14/8 25% FIO2; R/R 39-51; INCREASES WITH ANY CARE. TURN Q2H; ORAL CARE Q4H; URINARY CATHETER DRAINING TINY URINE; ATTENDS IN PLACE FOR INCONTINENCE; ARMS ELEVATED DUE TO WRIST/HAND SWELLING. L/S COARSE/WHEEZY. BANANA BAG INFUSING THEN LR AT 75ML/HR; 2 POWERGLIDES; ONE IN EACH ARM.
[2020-10-21 05:41] LABS: BASOPHILS ABSOLUTE AUTO 0.02 K/mm3 (0.00-0.23); BASOPHILS PERCENT AUTO 0 % (0-2); EOSINOPHILS ABSOLUTE AUTO 0.02 K/mm3 (0.00-0.68); EOSINOPHILS PERCENT AUTO 0 % (0-6); Hematocrit 34.9 % (37.0-53.0); Hemoglobin 12.1 g/dL (13.5-17.5); IMMATURE GRAN ABSOLUTE AUTO 0.04 K/mm3 (0.00-0.10); IMMATURE GRAN PERCENT AUTO 1 % (0-1); LYMPHOCYTES ABSOLUTE AUTO 1.11 K/mm3 (0.84-5.20); LYMPHOCYTES PERCENT AUTO 22 % (21-46); MONOCYTES ABSOLUTE AUTO 0.32 K/mm3 (0.16-1.47); MONOCYTES PERCENT AUTO 6 % (4-13); Mean Corpuscular HGB 35.9 pg (26.0-34.0); Mean Corpuscular HGB Conc 34.7 g/dL (31.5-36.5); Mean Corpuscular Volume 104 fL (80-100); NEUTROPHILS ABSOLUTE AUTO 3.57 K/mm3 (1.96-9.15); NEUTROPHILS PERCENT AUTO 70 % (41-73); RDW Coefficient Variation 14.1 % (11.7-14.2); RDW Standard Deviation 54.1 fL (35.1-46.3); Red Blood Cell Count 3.37 M/mm3 (4.30-5.90); White Blood Cell Count 5.08 K/mm3 (4.00-11.30)
[2020-10-21 05:56] LABS: Mean Platelet Volume 13.7 fL (9.1-12.4); Platelet Count 50 K/mm3 (150-400)
[2020-10-21 06:11] LABS: Albumin, Blood 1.4 g/dL (3.4-5.0); Anion Gap 6 mmol/L (6-16); Blood Urea Nitrogen 5 mg/dL (8-24); Bun/Creatinine Ratio 8.2 (12.0-20.0); CO2, Blood 25 mmol/L (21-32); Chloride, Blood 106 mmol/L (98-108); Creatinine, Blood 0.61 mg/dL (0.60-1.20); Glomerular Filtration Rate >60 (60-); Glucose, Blood 118 mg/dL (70-99); Phosphorus, Blood 2.7 mg/dL (2.5-4.9); Potassium, Blood 3.2 mmol/L (3.5-5.5); Sodium, Blood 137 mmol/L (136-145)
--- NOTE | 2020-10-21 06:19 | NUR ---
NO ACUTE CHANGES TO REPORT. PATIENT'S R/R 28-55; INCREASED WITH MOVEMENT OR WHEN STAFF IN ROOM DOING CARE.
--- NOTE | 2020-10-21 08:56 | NUR ---
pt laying in bed on bipap, resp fast in the 40's, minimally responsive, moans when moved, shakes head to a few questions, lungs are course t/o, no cough noted, hrirr, tele in place running afib per montior, see strip, trace edema noted to b/l le, ppp faint, cap refill <3sec, vs stable, afebrile, iv sites are power glides to r and l ua, no moving himself at this time, btx4, abd soft incont of stool and urine, donahue cath draining sudha urine, skin has some abrasions to legs and groin, feet looks like scratches, Dr. Bustos in to see him, ordered to turn LR up to 150mls/hr, dietary consult placed. call light in reach.
[2020-10-21 09:25] LABS: Magnesium, Blood 1.9 mg/dL (1.6-2.4)
[2020-10-21 09:28] LABS: Thyroid Stimulating Hormone 13.2 uIU/mL (0.360-4.800)
--- NOTE | 2020-10-21 10:24 | NUR ---
pt was turned and changed, had a med loos, black stool. this will be sent for occult blood. call light in reach.
--- NOTE | 2020-10-21 11:30 | NUR ---
pt a bit agitated, placed him on n/c after doing some oral care and suctioning, he is maintaining 90%, seems a bit more comfortable. clinimix started, Dr. Perla wants the lr to run another two hrs. call light in reach.
[2020-10-21 11:49] LABS: Stool Occult Blood Guaiac 1 Neg (Neg)
--- NOTE | 2020-10-21 13:20 | NUR ---
oral care done, attempted to suction, pt fights it, minimal secretions, sounds wet deeper than kati can reach, was going to put him back on bipap, Dr. Bustos in to see him, said to hold off on the bipap and any meds. attempting to suction again. call light in reach.
--- NOTE | 2020-10-21 17:45 | NUR ---
Dr. Bustos in to see pt in the afternoon, he said to hold benzos and opiods and let him clear, also deep sutioned by RT moderate amount of phlem, his oxygen sats are better, seems more relaxed, still very lethargic, is irritated when moved. no further changes this shift. call light in reach.
--- NOTE | 2020-10-22 00:51 | NUR ---
RESP STATUS PT RR 3O'S AT BEGINNING OF SHIFT. THOROUGH ORAL CARE PROVIDED. REPOSITIONED. RT TO ROOM, DECISION MADE TO PLACE ON BIPAP DUE TO PT "BELLY BREATHING AND SHOWING DISTRESSED RESPIRATIONS. PT TOLERATING BUT MOANING. 0005 ORAL CARE PROVIDED MULTIPLE TIMES TO PT WITH REPOSITIONING AND SUCTIONING WITH MARIE. THIS RN CALLED RESPIRATORY TO DEEP SUCTION DUE TO PRESENTATION AND INCREASED RR TO 40'S - 50'S. DEEP SUCTIONED TWICE, SOME THICK SPUTUM PRODUCED. ORAL SUCTIONING WITH MODERATE OUTPUT NOTED. RESPIRATORY WHEEZE NOTED. BREATHING TREATMENT PROVIDED THROUGH BIPAP. REPOSITIONED. PT ASKED IF IN PAIN, DENIES AT THIS TIME. ORDERS FOR NO NARCOTICS/BZOS CURRENTLY. RR 30-40. BIPAP REMAINS FOR WOB.
[2020-10-22 04:12] LABS: BASOPHILS ABSOLUTE AUTO 0.02 K/mm3 (0.00-0.23); BASOPHILS PERCENT AUTO 0 % (0-2); EOSINOPHILS ABSOLUTE AUTO 0.01 K/mm3 (0.00-0.68); EOSINOPHILS PERCENT AUTO 0 % (0-6); Hematocrit 34.8 % (37.0-53.0); Hemoglobin 11.9 g/dL (13.5-17.5); IMMATURE GRAN ABSOLUTE AUTO 0.04 K/mm3 (0.00-0.10); IMMATURE GRAN PERCENT AUTO 1 % (0-1); LYMPHOCYTES ABSOLUTE AUTO 0.85 K/mm3 (0.84-5.20); LYMPHOCYTES PERCENT AUTO 18 % (21-46); MONOCYTES ABSOLUTE AUTO 0.29 K/mm3 (0.16-1.47); MONOCYTES PERCENT AUTO 6 % (4-13); Mean Corpuscular HGB 35.5 pg (26.0-34.0); Mean Corpuscular HGB Conc 34.2 g/dL (31.5-36.5); Mean Corpuscular Volume 104 fL (80-100); NEUTROPHILS PERCENT AUTO 75 % (41-73); RDW Standard Deviation 53.1 fL (35.1-46.3); Red Blood Cell Count 3.35 M/mm3 (4.30-5.90); White Blood Cell Count 4.81 K/mm3 (4.00-11.30)
[2020-10-22 04:18] LABS: Mean Platelet Volume 14.3 fL (9.1-12.4); Platelet Count 50 K/mm3 (150-400)
[2020-10-22 04:27] LABS: Anion Gap 6 mmol/L (6-16); Blood Urea Nitrogen 7 mg/dL (8-24); Bun/Creatinine Ratio 12.5 (12.0-20.0); CO2, Blood 23 mmol/L (21-32); Chloride, Blood 106 mmol/L (98-108); Creatinine, Blood 0.56 mg/dL (0.60-1.20); Glomerular Filtration Rate >60 (60-); Glucose, Blood 103 mg/dL (70-99); Potassium, Blood 3.2 mmol/L (3.5-5.5); Sodium, Blood 135 mmol/L (136-145)
--- NOTE | 2020-10-22 04:47 | NUR ---
SHIFT SUMMARY PT ALERT AT TIMES AND SEVERELY LETHARGIC AT OTHERS. MOANING T/O NIGHT BUT STATES NOT BEING IN PAIN. PT STARTED SHIFT ON NC BUT TRANSITIONED OVER TO BIPAP WITH SUGGESTION FROM RT DUE TO SEVERE WOB AND RR 40-50. BIPAP 14/8 25%. PT HAS BEEN DEEP SUCTIONED THIS SHIFT WELL HAD CONSISTENT ORAL CARE. PT TOLERATES THIS BUT TENDS TO BITE DOWN ON EQUIPMENT CAUSING DIFFICULTIES WITH OBTAINING GOOD ORAL CARE. PT IN AFIB, CONTROLLED RATE WITH STABLE BP. VIVAS DRAINING DARK TINY URINE. PT BEING REPOSITIONED BY STAFF. POWERGLIDES BILATERALLY INFUSING. BED ALARM IN PLACE BUT PT ISN'T REALLY MOVING MEANINGFULLY IN BED. HAS MADE A FEW COMMENTS LIKE " MY WALLET & THANK YOU". PER ORDERS, THIS RN WITHOLDING NARCOTICS.
--- NOTE | 2020-10-22 19:38 | NUR ---
PT'S CIWA SCORES CONSISTENTLY 5-7; MADERA PROFOUNDLY WEAKLY SPONTANEOUSLY AND TO COMMAND WITH DELAY IN ALL 4 EXTREMITIES; VSS WITH TACHYCARDIA 80'S TO 130'S AND TACHYPNEA 40'S TO 60'S; PT MOANS WHEN BEING REPOSITIONED; PT'S SISTER AUDI CALLED AND RECEIVED UPDATES 2X; PT'S FRIEND VISITED AT BEDSIDE AND RECEIVED UPDATES; LIPIDS, FOLIC ACID/MAGNESIUM/THIAMINE MIX, AND CLINIMIX ADMINISTERED PER MAR
[2020-10-22 21:07] LABS: Albumin, Blood 1.5 g/dL (3.4-5.0); Anion Gap 7 mmol/L (6-16); Blood Urea Nitrogen 9 mg/dL (8-24); Bun/Creatinine Ratio 17.6 (12.0-20.0); CO2, Blood 22 mmol/L (21-32); Calcium, Blood 7.2 mg/dL (8.5-10.1); Chloride, Blood 104 mmol/L (98-108); Creatinine, Blood 0.51 mg/dL (0.60-1.20); Glomerular Filtration Rate >60 (60-); Glucose, Blood 124 mg/dL (70-99); Phosphorus, Blood 2.4 mg/dL (2.5-4.9); Potassium, Blood 3.5 mmol/L (3.5-5.5); Sodium, Blood 133 mmol/L (136-145)
--- NOTE | 2020-10-23 00:27 | NUR ---
10/22-2029 UPDATE UPON CARE ASSUMPTION PT WAS NOT MAINTAININFG 02 SATS >88% ON 6L NC SO PT SWITCHED TO BIPAP AT 35% O2. PT HAD INCREASED EDEMA ON BILAT SIDE OF HIS ABDOMEN, HANDS, FEET, AND SCROTUM I HAD THE DAYSHIFT RN CONFIRM THIS WORSENING. PT WAS TACHYPNEIC W RR 40-62. LUNGS SOUNDS APPEAR TO BE COARSE W FINE CRACKLES IN BASES HOWEVER DIFFICULT TO ASSESS PT GRUNTS W EACH RESPIRATION. DR. ORTEGA NOTIFIED OF PT'S CONDITION AND STAT BNP ORDERED AND THE LR RUNNING AT 150ML/HR WAS DC'D DUE TO LARGE FLUID IMBALANCE. BNP UNREMARKABLE AT 241 AND ASSESSED THE PT AND STATED THAT HE "WAS NOT OVERLY CONCERNED AT THIS POINT. SOLUTION MAKE UP OPERATOR ELIDIA Ch NOTIFIED OF STATUS UPDATE.
--- NOTE | 2020-10-23 03:58 | NUR ---
HAIR MACHINE OPERATOR SUMMARY PT IS AXO X1 THIS SHIFT. CIWA'S ARE AT 3 DUE TO DISORIENTATION. PT HAS BEEN VERY TACHYPNEIC THIS SHIFT W RR FROM 35-62. RR MOSTLY IN THE MID 40'S THIS SHIFT. PT VERY EDEMATOUS W INCREASING EDEMA TO BUE. BP'S HAVE BEEN WNL AND STABLE DESPITE THE LR BEING DC'D AT START OF SHIFT. PT GIVEN PAIN MEDICATION ONCE THIS SHIFT PT WAS MOANING W RESPIRATIONS W NO EFFECT. PROVIDER NOTIFIED OF PT'S CONDITION, SEE PREVIOUS NOTE. CLINIMIX RUNNING AT 100ML/HR. TELE SHOWING AFIB 80-100 THIS SHIFT. O2 SATS >92% ON BIPAP ALL SHIFT W 40% FIO2. WILL REPORT TO ONCOMING RN.
[2020-10-23 04:09] LABS: Magnesium, Blood 2.1 mg/dL (1.6-2.4); Phosphorus, Blood 2.5 mg/dL (2.5-4.9)
[2020-10-23 07:22] LABS: Anion Gap 7 mmol/L (6-16); Blood Urea Nitrogen 10 mg/dL (8-24); Bun/Creatinine Ratio 18.4 (12.0-20.0); CO2, Blood 22 mmol/L (21-32); Calcium, Blood 7.3 mg/dL (8.5-10.1); Chloride, Blood 104 mmol/L (98-108); Creatinine, Blood 0.54 mg/dL (0.60-1.20); Glomerular Filtration Rate >60 (60-); Glucose, Blood 102 mg/dL (70-99); Potassium, Blood 3.8 mmol/L (3.5-5.5); Sodium, Blood 133 mmol/L (136-145)
--- NOTE | 2020-10-23 18:29 | NUR ---
PT CONTINUOUSLY TACHYPNEIC THROUGHOUT SHIFT ON BIPAP SATTING >92% WITH RR 40'S TO 60'S; PT MOANS WHEN REPOSITIONED; OLANZAPINE 5MG ADMINISTERED SL 1X WITH MINIMAL APPARENT THERAPEUTIC EFFECT; PT URINE OUTPUT 300ML FOR SHIFT; PT'S HEART RATE CONSISTENTLY 100-120'S; NORMOTENSIVE; NO BM DURING DAY SHIFT; AMMONIA LEVEL DRAWN PER PROVIDER; FOLIC ACID/THIAMINE/MAGNESIUM MIX, LIPIDS, AND CLINIMIX ADMINISTERED PER MAR; PT DOES NOT APPEAR TO FOLLOW COMMANDS OR MOVE EXTREMITIES SPONTANEOUSLY; PROVIDERS UPDATED AT BEDSIDE; NO OTHER CHANGES DURING SHIFT
[2020-10-24 04:35] LABS: Magnesium, Blood 2.3 mg/dL (1.6-2.4)
[2020-10-24 04:36] LABS: Phosphorus, Blood 3.1 mg/dL (2.5-4.9)
--- NOTE | 2020-10-24 05:13 | NUR ---
AUTOMATION AND CONTROL ENGINEER SUMMARY PT HAS CONTINUED TO BE TACHYPNEIC W RR 40-60 ALL SHIFT. PT UNRESPONSIVE BUT OCCASIONALLY MOANS WHILE BEING REPOSITIONED OR DURING ORAL CARE. PT TX FOR PAIN PER EMAR THIS SHIFT W SHORT LIVED IMPROVEMENT IN RESPIRATIONS AND COMFORT APPEARENCE. PT WAS PLACED ON CPAP VS BIPAP HALWAY THROUGH THIS SHIFT BY RT, PT MAINTAINING O2 SATS >92% ON 40% FIO2. PT REPOSITIONED AND ORAL CARE DONE THROUGHOUT THE SHIFT. PT HAD TO BE SUCTIONED 5+ TIMES THIS SHIFT HE HAD INCREASED COUGHING AND SECRETIONS. TELE SHOWING AFIB 90-110. BP WNL AVERAGING 120/75. WILL REPORT TO ONCOMING RN.
--- NOTE | 2020-10-24 08:08 | NUR ---
pt laying in bed on cpap, nonresponsive except to flutter eyes when spoke to, lungs are course t/o, fine crackles in bases, currently on cpap, resp in the 40's, no cough noted, hrirr, tele in place, running afib per monitor, see strip, anasarca noted, +1 to feet, ppp+2, cap refill <3sec, vs stable, afebrile, iv sites are power glides to b/l upper arms, btx4, abd flat soft nontender, voids via donahue cath draining sudha urine, attends in place for incont stool. skin has abrasions to luca area, attends in place, limbs are flacid, pulses +2, cap refill <3sec, pupils are sluggish, Dr. Bustos in to see pt, will call sister this am to update her, call light in reach.
[2020-10-24 09:18] LABS: BASOPHILS ABSOLUTE AUTO 0.01 K/mm3 (0.00-0.23); BASOPHILS PERCENT AUTO 0 % (0-2); EOSINOPHILS ABSOLUTE AUTO 0.01 K/mm3 (0.00-0.68); EOSINOPHILS PERCENT AUTO 0 % (0-6); Hematocrit 33.1 % (37.0-53.0); Hemoglobin 11.4 g/dL (13.5-17.5); IMMATURE GRAN ABSOLUTE AUTO 0.05 K/mm3 (0.00-0.10); IMMATURE GRAN PERCENT AUTO 1 % (0-1); LYMPHOCYTES ABSOLUTE AUTO 0.99 K/mm3 (0.84-5.20); LYMPHOCYTES PERCENT AUTO 16 % (21-46); MONOCYTES ABSOLUTE AUTO 0.45 K/mm3 (0.16-1.47); MONOCYTES PERCENT AUTO 7 % (4-13); Mean Corpuscular HGB 35.4 pg (26.0-34.0); Mean Corpuscular HGB Conc 34.4 g/dL (31.5-36.5); Mean Corpuscular Volume 103 fL (80-100); NEUTROPHILS ABSOLUTE AUTO 4.69 K/mm3 (1.96-9.15); NEUTROPHILS PERCENT AUTO 76 % (41-73); Platelet Count 58 K/mm3 (150-400); RDW Coefficient Variation 13.7 % (11.7-14.2); RDW Standard Deviation 52.2 fL (35.1-46.3); Red Blood Cell Count 3.22 M/mm3 (4.30-5.90)
[2020-10-24 09:32] LABS: Anion Gap 7 mmol/L (6-16); Blood Urea Nitrogen 13 mg/dL (8-24); Bun/Creatinine Ratio 26.9 (12.0-20.0); CO2, Blood 22 mmol/L (21-32); Calcium, Blood 7.3 mg/dL (8.5-10.1); Chloride, Blood 102 mmol/L (98-108); Creatinine, Blood 0.48 mg/dL (0.60-1.20); Glomerular Filtration Rate >60 (60-); Glucose, Blood 100 mg/dL (70-99); Potassium, Blood 3.7 mmol/L (3.5-5.5); Sodium, Blood 131 mmol/L (136-145)
[2020-10-24 09:36] LABS: Mean Platelet Volume 13.4 fL (9.1-12.4)
--- NOTE | 2020-10-24 16:19 | NUR ---
Pt resting in bed with his eyes closed upon arrival. Pt on BIPAP. Pt briefly opens his eyes to verbal stimuli and briefly attempts to speak then quickly drifts to eyes closed. Spoke with Pt's primary RN Anand and discussed case. Spoke with Dr Perla and discussed case. Dr Perla reports family may benefit from discussion regarding Pt's wishes for code status. Called and spoke with Pt's sister Yuni. Provided update and engaged in therapeutic listening as Yuni discusses family. She reports Pt has another sister Chloe, a brother Joseluis. Pt also has a daughter Ene who he has not been in contact with for 39 years. Pt's mother lives in the same city as [place] which is [place]. Continued therapeutic listening. Engaged in therapeutic discussion regarding Pt's wishes for CPR and Intubation. Yuni reports Pt would not want to be resuscitated in his current condition. Yuni reports she is confident that Pt's mother would agree. Pt's mother is currently unavailable and is hard of hearing. Yuni reports she can go to mother's home tomorrow and discuss wishes to make final decision. Yuni will call Palliative Care tomorrow with Pt's mother on speaker phone to discuss further before making final decision. Palliative Care will remain available.
--- NOTE | 2020-10-24 18:18 | NUR ---
PT HAD A BLAYNE DONE, TOLERATED WELL, VERY SLEEPY STILL, BUT IS SATING IN THE 90'S ON 3 LITERS, SIPS WATER WITHOUT DIFF, WAS IN TO VISIT, DRESSINGS ON LEGS WERE CHANGED, V.S. STABLE, HE WAS INCONT OF URINE WHILE SLEEPING, VOIDED MOSTLY ON THE FLOOR HE WAS ON HIS SIDE, BED CHANGE BEING DONE. NO FURTHER CHANGES THIS SHIFT, CALL LIGHT IN REACH.
--- NOTE | 2020-10-24 18:25 | NUR ---
PT HAS BEEN TURNED, FOUND TO HAVE A SORE ON HIS BOTTOM, MEPILEX PLACED, PT ON BIPAP MOST OF THE DAY, HAS BEEN DEEP SUCTIONED, PALLATIVE CARE INVOLVED, AND SPOKE WITH SISTER, NO FURTHER ACUTE CHANGES. CALL LIGHT IN REACH.
--- NOTE | 2020-10-24 19:25 | NUR ---
ASSUMED CARE, PATEINT LAYING IN WITH BIPAP, OPENS EYES SLIGHTLY WITH VERBAL STIMULI. SEE [facility] SHIFT ASSESSMENT FOR FULL ASSESSMENT.
--- NOTE | 2020-10-24 22:01 | NUR ---
RECEIVED REPORT AND ASSUMED CARE OF PT. HE IS LYING IN BED WITH HIS EYES CLOSED, BIPAP IN PLACE, TACHYPNIC. PT REPOSITIONED. WILL MEDICATE PER JUN.
[2020-10-25 05:08] LABS: Magnesium, Blood 2.2 mg/dL (1.6-2.4); Phosphorus, Blood 3.6 mg/dL (2.5-4.9)
[2020-10-25 05:52] LABS: Alanine Aminotransfer (ALT/SGP 9 U/L (12-78); Albumin, Blood 1.2 g/dL (3.4-5.0); Albumin/Globulin Ratio 0.3 (0.8-1.8); Alk Phos 46 U/L (50-136); Anion Gap 8 mmol/L (6-16); Aspartate Aminotrans (AST/SGOT 85 U/L (12-37); Bilirubin, Total 2.2 mg/dL (0.1-1.0); Blood Urea Nitrogen 12 mg/dL (8-24); Bun/Creatinine Ratio 24.2 (12.0-20.0); CO2, Blood 22 mmol/L (21-32); Calcium, Blood 7.2 mg/dL (8.5-10.1); Chloride, Blood 101 mmol/L (98-108); Globulin, Blood 3.6 g/dL (2.2-4.0); Glomerular Filtration Rate >60 (60-); Glucose, Blood 105 mg/dL (70-99); Potassium, Blood 3.6 mmol/L (3.5-5.5); Sodium, Blood 131 mmol/L (136-145); Total Protein, Blood 4.8 g/dL (6.4-8.2)
[2020-10-25 06:09] LABS: BASOPHILS ABSOLUTE AUTO 0.02 K/mm3 (0.00-0.23); BASOPHILS PERCENT AUTO 0 % (0-2); EOSINOPHILS ABSOLUTE AUTO 0.01 K/mm3 (0.00-0.68); EOSINOPHILS PERCENT AUTO 0 % (0-6); Hemoglobin 10.7 g/dL (13.5-17.5); IMMATURE GRAN ABSOLUTE AUTO 0.04 K/mm3 (0.00-0.10); IMMATURE GRAN PERCENT AUTO 1 % (0-1); LYMPHOCYTES ABSOLUTE AUTO 0.82 K/mm3 (0.84-5.20); LYMPHOCYTES PERCENT AUTO 15 % (21-46); MONOCYTES ABSOLUTE AUTO 0.37 K/mm3 (0.16-1.47); MONOCYTES PERCENT AUTO 7 % (4-13); Mean Corpuscular HGB 35.5 pg (26.0-34.0); Mean Corpuscular HGB Conc 34.5 g/dL (31.5-36.5); Mean Corpuscular Volume 103 fL (80-100); NEUTROPHILS ABSOLUTE AUTO 4.11 K/mm3 (1.96-9.15); NEUTROPHILS PERCENT AUTO 77 % (41-73); Platelet Count 58 K/mm3 (150-400); RDW Coefficient Variation 13.8 % (11.7-14.2); RDW Standard Deviation 52.2 fL (35.1-46.3); Red Blood Cell Count 3.01 M/mm3 (4.30-5.90); White Blood Cell Count 5.37 K/mm3 (4.00-11.30)
--- NOTE | 2020-10-25 06:09 | NUR ---
SHIFT SUMMARY: AGUSTÍN OCCASIONALLY OPENS HIS EYES TO VOICE/PHYSICAL STIMULATION. NPO, ORAL CARE PROVIDED. Q2 TURNS. VIVAS PATENT, ATTENDS DRY. CREAM APPLIED TO EXCORIATED SKIN IN BRETT-AREA. BIPAP IN PLACE, TACHYPNIC. HEELS FLOATED. POWERGLIDE TO BILATERAL ARMS PATENT, ARMS ELEVATED ON PILLOWS. HE HAS NOT MOVED HIMSELF MORE THAN LIFTING HIS ARM/S OCCASIONALLY. WILL REPORT TO DAY SHIFT RN.
--- NOTE | 2020-10-25 07:45 | NUR ---
pt laying in bed with eyes closed, on cpap, minimal responsive, moans when touched or moved, lungs are course t/o, unable to clear secretions, suctioning prn, no cough noted, resp in the 40's, hrirr, tele in place running afib per monitor, see strip, anascarca noted, cap refill <3sec, vs stable, afebrile, iv is power glide to r and l ua, both flush and draw back blood, infusing clinimix as ordered, btx4, incont of urine and stool, donahue cath draining sudha urine, attends in place for stool, limbs are flacid, multiple scabs and abrasions, mepilex to coccyx, call light in reach.
--- NOTE | 2020-10-25 11:56 | NUR ---
pt resp in the 50's, seems more agitated, 50mcg fentanyl given, resp came down to the 30's. continues on bipap. call light in reach.
--- NOTE | 2020-10-25 14:40 | NUR ---
pt is opening his eyes, and tracking, followed some commands. continues to mouth breath at a high rate. is working with PT at this time. call light in reach.
--- NOTE | 2020-10-25 15:13 | NUR ---
Pt resting in bed upon arrival. Pt is awake but still unable to communicate. Spoke with Primary RN Annalisa. Annalisa reports Pt is more awake and able to follow commands. Palliative Care will remain available.
--- NOTE | 2020-10-25 18:43 | NUR ---
pt has been on n/c since about 1400, maintaining sats, moans, no further changes this shift. call light in reach.
--- NOTE | 2020-10-26 01:28 | NUR ---
COVERING PRIMARY FOR LUNCH PT REPOSITIONED, MOANING, UNABLE TO DETERMINE CAUSE, PT NOT RESPONSIVE TO QUESTIONS BY THIS RN. AYALA COOPER ASSISTS THIS RN TO REPOSITION PT AND ADJUST CPAP MASK. PT TURNED TO R SIDE, PROPPED ON PILLOWS, HEELS FLOATED. PT'S RR DECREASES FROM HIGH 40'S-LOW 50'S TO MID 40'S AND MOANS CALM FOLLOWING REPOSITIONING. LIGHTS TURNED DOWN IN ROOM.
--- NOTE | 2020-10-26 05:55 | NUR ---
SHIFT SUMMARY PATIENT CONTINUES TO BE LETHARGIC. OCCASIONALLY OPENING HIS EYES SPONTANEOUSLY, RESPONDS TO PAIN STIMULI. MEDICATED PER EMAR FOR PAIN. NO ACUTE ISSUES NOTED. POWERGLIDES PATENT AND FLUSHED. BED IN LOWEST POSITION WITH WHEELS LOCKED AND ALARM ON. CALL LIGHT WITHIN REACH. REPORT GIVEN TO ONCOMING PATRICIA.
--- NOTE | 2020-10-26 11:35 | NUR ---
PT BREATHING LABORED, RR 50-63, O2 SAT 88-90% ON BIPAP 40% O2. FACIAL GRIMACING AND MOANING, APPEARS TO BE IN PAIN. REPOSITIONED PT TO L SIDE, ELEVATED HOB, ORALLY SUCTIONED FOR SMALL AMT SECRETIONS. FENTANYL GIVEN EARLIER FOR PAIN, BUT SEEMED TO HAVE LITTLE EFFECT. SPOKE TO DR. YEH BY PHONE, EXPLAINED CONCERS ABOUT WORK OF BREATHING AND PAIN. REQUESTED MORPHINE OR DILAUDID TO HELP WITH RESP DIFFICULTIES AND PAIN. THIS AUTHOR STATED THAT NO NGT CAN BE PLACED WHILE PT'S RESP STATUS IS LIKE THIS.
--- NOTE | 2020-10-26 14:23 | NUR ---
LEFT MESSAGE FOR JUNIOR TECHNICAL WRITER AT 1100 REGARDING STARTING TUBE FEEDING. NO RETURN CALL YET.
--- NOTE | 2020-10-26 14:25 | NUR ---
ATTEMPTED TO REACH DR. YEH TO REPORT CXR FINDINGS AND RESULTS OF PROCALCITONIN. NO ANSWER, LEFT MSG ON TO CALL BACK.
--- NOTE | 2020-10-26 18:19 | NUR ---
SHIFT SUMMARY: PT CONTINUES TO BE TACHYPNEIC, RR 40-60 WITH ABDOMINAL BREATHING. ON CPAP 10 CM/50% O2, CONTINUOUS OXIMETRY SHOWS O2 SAT 88-95%. ATTEMTPED A BREAK FROM CPAP EARLIER TODAY; PLACED PT ON HIGH FLOW O2 @ 14 L/MIN, PLACED IN HIS MOUTH HE IS MOUTH BREATHER. WAS ABLE TO TOLERATE THIS FOR ABOUT 45 MINUTES, THEN BEGAN TO DESAT TO HIGH 70%'S, PLACED BACK ON CPAP. APPEARS PAINFUL AT TIMES; FENTANYL GIVEN WITH NO EFFECT, PROVIDER NOTIFIED BUT NO ADDITIONAL PAIN MEDICATIONS ORDERED. CXR COMPLETED. RECEIVED TELEPHONE ORDERS FOR SPUTUM SPECIMEN AND CHEST PT. TIDAL VOLUMES [phone]. NGT NOT PLACED D/T PT RESP STATUS. VIVAS DRAINING ADEQUATE URINE, TINY TO YELLOW. SKIN IS EXCORIATED IN GROIN AND GLUTEAL CLEFT; APPLIED BARRIER CREAM. GAVE PT'S SISTER ALVARO TELEPHONE UPDATE THIS AFTERNOON. PALLIATIVE CARE FOLLOWING.
--- NOTE | 2020-10-27 06:08 | NUR ---
SHIFT SUMMARY PATIENT ONLY RESPONSIVE TO PAINFUL STIMULI. RESPIRATORY RATE RANGING FROM 40 TO 60 BREATHS PER MINUTE. NO CHANGES NOTED IN PATIENTS CONDITION. POWERGLIDES PATENT AND FLUSHED. BED IN LOWEST POSITION WITH WHEELS LOCKED AND ALARM ON. CALL LIGHT WITHIN REACH. REPORT GIVEN TO ONCOMING RN.
--- NOTE | 2020-10-27 15:20 | NUR ---
Transition to comfort care: Rec'd an update from nursing that Dr. Hoover had spoken with pt's mother (Sanaz) and her sister (Chloe) and the decision was made by pt's mother to transition him to comfort care. Spoke with Dr. Hoover who verified that Sanaz, pt's mother, and Chloe (sister) indeed are requesting comfort care at this time. Dr. Hoover attempted to contact pt's other sister, Yuni, but was not able to reach her. Contact numbers are: Sanaz (mother) [phone], Chloe [phone], Yuni [phone]. Dr. Hoover requested that PC enter comfort care orders for pt. Comfort care orders placed. Spoke with Chloe, pt's sister who states that Yuni and her dtr will be driving from the [facility] to come say goodbye to Vlad. They will arrive by no later than 1200 tomorrow. Chloe and Sanaz are not planning to come say goodbye. Chloe states that Yuni was the closest to Vlad and that she is the one who needs to say goodbye. PCU car whacker spoke with pt's sister Yuni. Plan is to transition to comfort care, but to leave the bipap in place until pt's sister arrives to say goodbye. Chloe states that they would like to donate Vlad's body after he passes. She states they have been in contact with [employer] [phone] and are working on getting the paperwork together. [employer] phone number given to PCU car whacker. Bedside nursing updated on plan.
--- NOTE | 2020-10-27 15:26 | NUR ---
UPDATE FAMILY CONTACTED BY PHYSICIAN AND PALLIATIVE CARE. COMFORT CARE MEASURES IMPLEMENTED PER PHYSICIAN ORDER. PT CURRENTY ON BIPAP AT THIS TIME FOR COMFORT. PT NOT IN DISTRESS AT THIS TIME.
--- NOTE | 2020-10-27 17:54 | NUR ---
UPDATE INCREASED SECRETIONS. ORAL CARE PROVIDED AND SUCTON BY RT.
--- NOTE | 2020-10-27 18:02 | NUR ---
SHIFT SUMMARY PT TRANSITIONED TO COMFORT CARE DURING SHIFT. PALLIATIVE CARE SPOKE WITH FAMILY AND PHYSICIAN SPOKE WITH FAMILY. PLAN FOR PT'S SISTER TO SEE PT TOMORROW AFTERNOON. PLAN TO KEEP CPAP IN USE AT 50% FIO2 AT THIS TIME. PT TURNED Q 2 HRS. ORAL CARE PROVIDED Q 4 HRS. MEDICATED PER EMAR FOR DYSPNEA. WILL CONT TO MONITOR UNTIL REPORT GIVEN TO NIGHTSHIFT RN.
--- NOTE | 2020-10-28 05:33 | NUR ---
SHIFT SUMMARY PATIENT ONLY RESPONSIVE TO PAINFUL STIMULI. 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 CONTINUES TO BE TACHYPNIC. POWERGLIDED PATENT AND FLUSHED. BED IN LOWEST POSTIION WITH WHEELS LOCKED AND ALARM ON. CALL LIGHT WITHIN REACH. REPORT GIVEN TO ONCYOKO GOMEZ.
--- NOTE | 2020-10-28 15:12 | NUR ---
RN AND BAR CAPTAIN PROVIDED FULL BED BATH, CATH CARE, REPOSITIONING, CLEAN ATTENDS, CLEAN GOWN, ORAL CARE, PROVIDED PRIOR TO FAMILY VISIT AT 1200. MEDICATIONS PROVIDED PER EMAR. FAMILY AT BEDSIDE WITH PALLIATIVE CARE AND SPIRITUAL CARE. AT 1500, VIVAS REMOVED.
--- NOTE | 2020-10-28 17:01 | NUR ---
pt medicated for comfort before removing bipap family at bedside and chaplian pt passed peacfully today with family at bedside.
--- NOTE | 2020-10-28 17:50 | NUR ---
Spiritual care note: Present with family as pt being considered for end-of-life. Sister, Yuni, niece and friend of pt at bedside. Family tearful, but approriate and accepting of POC. Pt medicated, c-pap removed, and he passed within a few minutes. Prayer provided at Yuni's request. Educated on next steps per request. Family expressed gratitude for compassionate care.
== END 2020-10-28 16:10 | DRG 91 ==
LOC: ER 12:53 → ICUW 12:54 → ICUE 20:02 → PCU 10-15 10:59 → ICUE 10-15 10:59 → PCU 10-18 18:50
PROVIDERS: Emergency Medicine; Family Medicine; Hospitalist; Internal Medicine; Physician Assistant; Student in an Organized Health Care Education/Training Program; ADMIT Internal Medicine
PROC: 3E033XZ Introduction of Vasopressor into Peripheral Vein, Percutaneous Approach (ICD-10-PCS; 2020-10-15)
PROC: 5A09457 Assistance with Respiratory Ventilation, 24-96 Consecutive Hours, Continuous Positive Airway Pressure (ICD-10-PCS; principal; 2020-10-17)
DX: G92 Toxic encephalopathy (principal); J18.9 Pneumonia, unspecified organism; J96.01 Acute respiratory failure with hypoxia; J69.0 Pneumonitis due to inhalation of food and vomit; E51.2 Wernicke's encephalopathy; F10.221 Alcohol dependence with intoxication delirium; E87.2 Acidosis; I48.91 Unspecified atrial fibrillation; Z51.5 Encounter for palliative care; Z66 Do not resuscitate; T67.5XXA Heat exhaustion, unspecified, initial encounter; E87.6 Hypokalemia; E03.9 Hypothyroidism, unspecified; E83.39 Other disorders of phosphorus metabolism; R57.1 Hypovolemic shock; D69.6 Thrombocytopenia, unspecified; E86.0 Dehydration; G47.00 Insomnia, unspecified; F17.210 Nicotine dependence, cigarettes, uncomplicated; B96.20 Unspecified Escherichia coli [E. coli] as the cause of diseases classified elsewhere; Y90.0 Blood alcohol level of less than 20 mg/100 ml
CPT/HCPCS: 0097U; 31720; 36415; 36600; 51702; 70450; 71045; 76705; 80048; 80053; 80069; 81001; 82140; 82272; 82330; 82550; 82607; 82746; 82803; 83605; 83735; 83880; 84100; 84132; 84145; 84439; 84443; 85025; 87070; 87077; 87086; 87186; 87205; 92526; 92610; 93005; 93010; 93306; 94640; 94660; 94667; 94762; 95819; 96372; 96375; 96376; 97110; 97162; 97530; 99285-25; A9270; C1751; C9113; G0378; G0480; J0295; J0610; J0696; J1650; J1940; J1956; J2060; J2270; J3010; J3411; J3475; J3480; J7030; J7040; J7042; J7050; J7060; J7120